=== PATIENT | female | born 1935 | race Two or more races ===

== ENCOUNTER 2024-03-14 02:14 | Emergency (ER) | payer OTHER ==
[~2024-03-14] VITALS: Ht 160 cm; Wt 82.6 kg
[2024-03-14] MEDS: ONDANSETRON HCL 4 MG/2 ML VIAL IV ONE (02:45)
[2024-03-14] MEDS: FAMOTIDINE (10MG/ML) 2ML VL IV ONE (02:45)
[2024-03-14] MEDS ORDERED: SODIUM CHLORIDE 0.9% 1,000 ML IV ONE (02:45)
[2024-03-14 03:09] LABS: Chloride 111 mmol/L (98-107); Sodium 143 mmol/L (136-145)
[2024-03-14 03:10] LABS: Anion Gap 8 (5-15); Carbon Dioxide 24 mmol/L (20-31)
[2024-03-14 03:11] LABS: Calcium 9.8 mg/dL (8.7-10.4)
[2024-03-14 03:15] LABS: Basophils # (auto) 0.1 10 ^3/uL (0-0.2); Basophils % (auto) 0.5 % (0.0-2.0); Eosinophils # (auto) 0.2 10 ^3/uL (0-0.8); Eosinophils % (auto) 1.5 % (0.0-7.0); Glucose 160 mg/dL (74-106); Hematocrit 44.5 % (36.0-46.0); Hemoglobin 14.4 g/dL (12.2-16.2); Lymphocytes # (auto) 1.5 10 ^3/uL (0.4-5.4); Lymphocytes % (auto) 15.3 % (10.0-50.0); Mean Corpuscular Hemoglobin 28.7 pg (28.0-32.0); Mean Corpuscular Hgb Conc. 32.3 g/dL (32.0-36.0); Mean Corpuscular Volume 88.7 fL (80.0-100.0); Monocytes # (auto) 0.5 10 ^3/uL (0-1.3); Monocytes % (auto) 5.5 % (0.0-12.0); Neutrophils # (auto) 7.7 10 ^3/uL (1.6-8.6); Neutrophils % (auto) 77.2 % (37.0-80.0); Nucleated Red Blood Cells % 0.1 %; Platelet Count (auto) 217 10^3/uL (140-450); Red Blood Cells 5.02 10^6/uL (4.0-5.20); Red Cell Distribution Width 13.9 % (11.8-14.3)
[2024-03-14 03:16] LABS: BUN/Creatinine Ratio 10.9 (10.0-20.0); Blood Urea Nitrogen 14 mg/dL (9-23); Lipase 53 U/L (12-53)
[2024-03-14 04:29] VITALS: BP 165/59; TEMP 98.9
[2024-03-14 04:42] LABS: Urine Bacteria FEW /hpf (None Seen); Urine Blood Negative /uL (Negative); Urine Budding Yeast OCCASIONAL /hpf (None Seen); Urine Clarity Turbid (Clear); Urine Color Yellow (Yellow); Urine Hyaline Cast FEW /lpf (0 - 2); Urine Mucus FEW (None Seen); Urine Protein, UAD TRACE (Negative); Urine Specific Gravity 1.029 (1.001-1.035); Urine Urobilinogen 3 mg/dL (Negative); Urine WBC 4 /hpf (0 - 5); Urine pH 5.5 (5.0-9.0)
[2024-03-14 04:45] VITALS: PULSE 72; RESP 15; O2SAT 98
[2024-03-14] MEDS ORDERED: ZOFR4T PO (05:42)
== END 2024-03-14 05:46 | disposition home or self-care (01) ==
LOC: ER 02:14
DX: K52.9 Noninfective gastroenteritis and colitis, unspecified (principal); I10 Essential (primary) hypertension; I48.91 Unspecified atrial fibrillation; K21.9 Gastro-esophageal reflux disease without esophagitis; Z90.710 Acquired absence of both cervix and uterus; Z98.890 Other specified postprocedural states; Z95.0 Presence of cardiac pacemaker; Z90.49 Acquired absence of other specified parts of digestive tract; Z91.041 Radiographic dye allergy status
CPT/HCPCS: 36415; 80048; 81001; 83690; 85025; 93005; 96374; 96375; 99284; J2405; J3490